=== PATIENT | male | born 1970 | race Hispanic/Latino ===

== ENCOUNTER 2018-07-05 22:36 | Emergency (ER) | payer SELFPAY ==
--- NOTE | 2018-07-05 23:19 | ED PDOC ---
HPI: Psych/Substance Abuse Time Seen by Provider: 07/05/18 22:45 Chief Complaint (Nursing): Alcohol Ingestion Chief Complaint (Provider): Alcohol Ingestion ED Caveat: Intoxicated History Per: Patient History/Exam Limitations: intoxication Current Symptoms Are (Timing): Still Present Additional Complaint(s): Cristhian Abdi is a 48 year old homeless male with a past medical history of diabetes and alcohol abuse, who presents to the emergency department accompanied by ems for public intoxication. Patient was found sleeping in apartment building and admits that he was drinking but that he is not drunk. He reports he has no where to go and just wants a place to sleep. Patient states that he has no physical complaints at this time. PMD: no provider Past Medical History Reviewed: Historical Data, Nursing Documentation, Vital Signs Vital Signs: Last Vital Signs Temp 98.1 F 07/05/18 22:39 Pulse 71 07/05/18 22:39 Resp 16 07/05/18 22:39 BP 141/92 H 07/05/18 22:39 Pulse Ox 98 07/05/18 22:39 - Medical History PMH: Diabetes - Surgical History Surgical History: No Surg Hx - Family History Family History: States: Unknown Family Hx - Social History Alcohol: Other (alcohol abuse) - Allergies Allergies/Adverse Reactions: Allergies Allergy/AdvReac Type Severity Reaction Status Date / Time No Known Allergies Allergy Verified 07/05/18 22:39 Review of Systems ROS Statement: Except As Marked, All Systems Reviewed And Found Negative Constitutional: Negative for: Fever, Chills Psych: Positive for: Other (intoxication) Physical Exam - Reviewed Nursing Documentation Reviewed: Yes Vital Signs Reviewed: Yes - Physical Exam Appears: Positive for: No Acute Distress (appears comfortable) Head Exam: Positive for: ATRAUMATIC Skin: Positive for: Normal Color, Warm, Dry Eye Exam: Positive for: Normal appearance, EOMI, PERRL Cardiovascular/Chest: Positive for: Regular Rate, Rhythm. Negative for: Murmur Respiratory: Positive for: Normal Breath Sounds. Negative for: Respiratory Distress Extremity: Positive for: Normal ROM. Negative for: Deformity Neurologic/Psych: Positive for: Alert (awake), Gait (unsteady), Other (slurred speech; confused) - ECG O2 Sat by Pulse Oximetry: 98 (RA) Pulse Ox Interpretation: Normal - Progress Re-evaluation Time: 07:09 Condition: Re-examined, Improved Medical Decision Making Medical Decision Making: Time: 2310 Impression: Alcohol intoxication, homelessness Plan: Monitor for clinical sobriety --Alcohol serum --accucheck Scribe Attestation: Documented by Socrates Butts, acting as a scribe for Juanpablo Benitez MD. Provider Scribe Attestation: All medical record entries made by the Scribe were at my direction and personally dictated by me. I have reviewed the chart and agree that the record accurately reflects my personal performance of the history, physical exam, medical decision making, and the department course for this patient. I have also personally directed, reviewed, and agree with the discharge instructions and disposition. Disposition - Clinical Impression Clinical Impression: Alcohol abuse - Patient ED Disposition Is Patient to be Admitted: No Doctor Will See Patient In The: Office Counseled Patient/Family Regarding: Studies Performed, Diagnosis, Need For Followup - Disposition Disposition: Routine/Home Disposition Time: 07: Condition: GOOD Instructions: Alcohol Abuse and Alcoholism (DC)
[2018-07-06 06:31] VITALS: BP 108/72; PULSE 93; RESP 18; TEMP 98.4
[2018-07-06 07:09] VITALS: O2SAT 98
== END 2018-07-06 07:32 | disposition home or self-care (01) ==
LOC: H.ER 22:36
DX: F10.129 Alcohol abuse with intoxication, unspecified (principal); E11.9 Type 2 diabetes mellitus without complications; Z59.0 Homelessness
CPT/HCPCS: 82948; 99283; G0480